=== PATIENT | female | born 1960 | race African-American/Black ===

== ENCOUNTER → 2017-03-15 | Outpatient (CLI) | payer OTHER ==
[2017-03-15 19:06] LABS: ALBUMIN 3.4 g/dL (3.4-5.0); ALBUMIN/GLOBULIN RATIO 0.8 (1.0-1.7); CALCIUM 9.1 mg/dL (8.5-10.1); CREATININE 0.9 mg/dL (0.6-1.0); GFR 64.5; POTASSIUM 4.5 mmol/L (3.5-5.1); TOTAL BILIRUBIN 0.3 mg/dL (0.2-1.0); TOTAL PROTEIN 7.5 g/dL (6.4-8.2)
[2017-03-15 20:21] LABS: BASO # 0.1 x10^3/uL (0.0-0.2); BASO % 1 % (0-3); EOS # 0.1 x10^3/uL (0.0-0.7); EOS % 1 % (0-3); HEMATOCRIT 43.5 % (36.0-47.0); HEMOGLOBIN 14.5 g/dL (12.0-15.5); LYMPH # 2.8 x10^3/uL (1.0-4.8); LYMPH % 37 % (24-48); MEAN CORPUSCULAR HEMOGLOBIN 29 pg (25-35); MEAN CORPUSCULAR HGB CONC 33 g/dL (31-37); MEAN CORPUSCULAR VOLUME 88 fL (79-100); MONO # 0.8 x10^3/uL (0.0-1.1); MONO % 11 % (0-9); NEUT # 3.9 x10^3uL (1.8-7.7); NEUT % 51 % (31-73); PLATELET COUNT 306 x10^3/uL (140-400); RED BLOOD COUNT 4.95 x10^6/uL (3.50-5.40); WHITE BLOOD COUNT 7.6 x10^3/uL (4.0-11.0)
[2017-03-15 22:59] LABS: % BANDS 1 % (0-9); % EOS 1 % (0-5); % LYMPHS 32 % (24-48); % MONOS 11 % (0-10); % SEGS 52 % (35-66)
[2017-03-15 23:00] LABS: PLT ESTIMATE ADEQUATE (ADEQUATE)
[2017-03-16 10:41] LABS: THYROID STIM HORMONE (TSH) 0.674 uIU/mL (0.358-3.740)
[2017-03-16 14:09] LABS: HEMOGLOBIN A1C 6.4 % (4.8-5.6)
== END | disposition home or self-care (01) ==
LOC: SPEC 18:25
PROVIDERS: ATTEND Nurse Practitioner
DX: E11.9 Type 2 diabetes mellitus without complications (principal); I10 Essential (primary) hypertension
CPT/HCPCS: 80053; 80061; 83036; 84443; 85007; 85025

== ENCOUNTER 2017-05-18 14:19 | Emergency (ER) | payer OTHER ==
[~2017-05-18] VITALS: Ht 157.5 cm; Wt 117.5 kg
[2017-05-18] MEDS ORDERED: AMLO5TAB4 PO (15:53)
--- NOTE | 2017-05-18 15:55 | PHYS DOC ---
Past History Past Medical History: Diabetes, Hypertension Past Surgical History: Hysterectomy Alcohol Use: None Drug Use: None Adult General Chief Complaint Chief Complaint: HYPERTENSION HPI HPI Patient is a 56-year-old female who presents here today secondary to elevated blood pressure. Patient reports that she is on lisinopril 20 mg twice a day. Patient reports that she has an appointment with her primary care physician 1 month. Patient reports yesterday while she was at work one of her students actually poked her in her right eye and she's been having pain and discomfort in her right eye since with associated headaches. Patient has been seen by [employer]. this. Patient noticed throughout the night last night that her blood pressure was elevated and she is concerned secondary to the elevation. Patient has no complaints of chest pain shortness of breath nausea vomiting diarrhea double vision blurred vision weakness to her upper or lower extremities. Patient reports she has been compliant with her medications. Patient has any change in her urinary output. Review of Systems Review of Systems Review of systems: Constitutional: Denies fever or chills Eyes: Denies change in visual acuity, redness, or eye pain HENT: Denies nasal congestion or sore throat Respiratory: Denies cough or shortness of breath All other systems were reviewed and found to be within normal limits, except as documented in this note. Physical exam: Constitutional: Well developed, well nourished, no acute distress, non-toxic appearance. HENT: Normocephalic, atraumatic, bilateral external ears normal, nose normal. Eyes: PERRLA, EOMI, conjunctiva normal, no discharge. Neck: Normal range of motion, no tenderness, supple, no stridor. Cardiovascular: Heart rate regular rhythm, Lungs & Thorax: Bilateral breath sounds clear to auscultation Abdomen: No abdominal distention. Skin: Warm, dry, no erythema, no rash. Back: Normal spinal curvature Extremities: No tenderness, no cyanosis, no clubbing, ROM intact, no edema. Neurologic: Alert and oriented X 3, normal motor function, normal sensory function, no focal deficits noted. Psychologic: Affect normal, judgement normal, mood normal. Patient's ER physical exam was most remarkable: Normal funduscopic exam. Mild right conjunctival injection. Assessment and plan: 1. Elevated blood pressure: Patient with history of hypertension currently on lisinopril 20 mg twice a day. Patient reports she will be unable see her primary care physician for at least 2 weeks. Patient be started on Norvasc 5 mg daily he'll be given a two-week course was able see her primary care physician. Patient is not exhibiting any signs or symptoms O be consistent with an acute hypertension. Allergies Allergies Allergies Coded Allergies Type Severity Reaction Last Updated Verified Penicillins Allergy Intermediate 05/18/17 Yes Current Patient Data Vital Signs Vital Signs Date Time Temp Pulse Resp B/P (MAP) Pulse Ox O2 Delivery O2 Flow Rate FiO2 05/18/17 14:30 98.5 86 22 97 Room Air EKG EKG [] Radiology/Procedures Radiology/Procedures [] Course & Med Decision Making Course & Med Decision Making Pertinent Labs and Imaging studies reviewed. (See chart for details) [] Dragon Disclaimer Dragon Disclaimer This electronic medical record was generated, in whole or in part, using a voice recognition dictation system. Departure Departure: Impression: Primary Impression: Hypertension Additional Impression: Headache Disposition: 01 HOME, SELF-CARE Condition: IMPROVED Referrals: KADEEM HALL APRN (PCP) Patient Instructions: General Headache Without Cause, Hypertension Additional Instructions: Please make an appointment to see her family doctor within one to 2 weeks for reevaluation of hypertension. Scripts Amlodipine Besylate (NORVASC) 5 Mg Tablet 1 TAB PO DAILY, #20 TAB 5 Refills Prov: PATEL CARROLL MD 05/18/17 Problem Qualifiers PATEL CARROLL MD May 18, 2017 15:55
[2017-05-18] MEDS: amLODIPine BESYLATE 5 MG TABLET PO ONE (15:56)
[2017-05-18 16:01] VITALS: BP 191/101
== END 2017-05-18 16:00 | disposition home or self-care (01) ==
LOC: ER 14:19
DX: I10 Essential (primary) hypertension (principal); R51 Headache; H57.11 Ocular pain, right eye; E11.9 Type 2 diabetes mellitus without complications; Z88.0 Allergy status to penicillin
CPT/HCPCS: 99283

== ENCOUNTER → 2018-11-02 | Outpatient (CLI) | payer OTHER ==
[~2018-11-02] MED LIST: AMLO5TAB4 PO
--- NOTE | 2018-11-02 14:33 | RAD ---
Low-dose CT chest lung screening HISTORY: 40 year smoking history. Lung cancer screening. TECHNIQUE: Low-dose technique utilized. FINDINGS: Round nodule identified in the right lower lobe, abutting the major fissure, measures 7 mm without calcification. Series 2, image 124. Small flat nodule in the right lower lobe measures 4 mm long axis, series 2, image 137. Flat nodule identified in the right upper lobe measuring 6 x 3 x 2 mm, series 2, image 107. There is no evidence of lung consolidation. Trachea and mainstem bronchi are patent. No evidence of pleural effusion or pericardial effusion. Aorta is calcified without evidence of aneurysm. Partially visualized thyroid is unremarkable. No significant lymph node enlargement. Scans to the upper abdomen are limited by technique but no obvious acute abnormality. Degenerative spondylosis. IMPRESSION: Right pulmonary nodules, largest measuring 7 mm in the right lower lobe. Findings compatible with lung RADS category 3. Recommend six-month follow-up with low dose CT. Electronically signed by: Brenton Rodriguez MD (11/02/2018 2:31 PM) [id number]
== END | disposition home or self-care (01) ==
LOC: CT 07:52
PROVIDERS: ATTEND Nurse Practitioner Family
DX: Z12.2 Encounter for screening for malignant neoplasm of respiratory organs (principal); R91.8 Other nonspecific abnormal finding of lung field; I70.0 Atherosclerosis of aorta; M47.819 Spondylosis without myelopathy or radiculopathy, site unspecified; Z87.891 Personal history of nicotine dependence
CPT/HCPCS: G0297

== ENCOUNTER → 2019-02-18 | Outpatient (CLI) | payer OTHER ==
--- NOTE | 2019-02-19 09:30 | RAD ---
DATE: 02/18/2019 8:30 AM EXAM: DIGITAL SCREEN BILAT W/CAD HISTORY: Baseline screening mammogram. COMPARISON: None. Bilateral CC and MLO views of the breasts were performed. This study was interpreted with the benefit of Computerized Aided Detection (CAD). FINDINGS: Breast Density: SCATTERED The breast parenchyma shows scattered fibroglandular densities. Breast parenchyma level B Cluster of amorphous microcalcifications within the left breast posterior depth 3:00 position approximately 12.2 cm from the nipple. Well-circumscribed mass left breast posterior depth 2:00 position measures 7.6 cm. No suspicious microcalcification, mass or architectural distortion within the right breast. Bilateral axillary lymph nodes. IMPRESSION: Cluster of amorphous calcifications within the left breast posterior depth 3:00 position. Well-circumscribed mass within the left breast posterior depth 2:00 position, may represent intramammary lymph node. BI-RADS CATEGORY: 0 INCOMPLETE: NEEDS ADDITIONAL IMAGING EVALUATION AND/OR PRIOR MAMMOGRAMS FOR COMPARISON. RECOMMENDED FOLLOW-UP: ADD ADDITIONAL IMAGING left breast CC and MLO spot compression views with ML view. Also left breast targeted ultrasound to evaluate the well-circumscribed mass. PQRS compliance statement: Patient information was entered into a reminder system. Mammography is a sensitive method for finding small breast cancers, but it does not detect them all and is not a substitute for careful clinical examination. A negative mammogram does not negate a clinically suspicious finding and should not result in delay in biopsying a clinically suspicious abnormality. "Our facility is accredited by the [employer] Mammography Program."
== END | disposition home or self-care (01) ==
LOC: MAMMO 08:20
PROVIDERS: ATTEND Nurse Practitioner Family
DX: Z12.31 Encounter for screening mammogram for malignant neoplasm of breast (principal); N63.21 Unspecified lump in the left breast, upper outer quadrant; N64.89 Other specified disorders of breast
CPT/HCPCS: 77067

== ENCOUNTER → 2020-01-03 | Outpatient (CLI) | payer OTHER ==
--- NOTE | 2020-01-03 10:26 | RAD ---
INDICATION: Reason: SHOULDER PAIN / Spl. Instructions: / History: COMPARISON: None. IMPRESSION: Left shoulder: 3 views obtained. There is some degenerative changes of the glenohumeral as well as the acromioclavicular joint with osteophyte formation. No evidence of acute fracture or dislocation. Electronically signed by: Josiah Lowe MD (01/03/2020 10:23 AM) [id number]
== END | disposition home or self-care (01) ==
LOC: DXRAD 09:43
PROVIDERS: ATTEND Nurse Practitioner Family
DX: M19.012 Primary osteoarthritis, left shoulder (principal); M25.712 Osteophyte, left shoulder
CPT/HCPCS: 73030

== ENCOUNTER 2020-06-28 07:26 | Emergency (ER) | payer SELFPAY ==
[~2020-06-28] VITALS: Ht 157.5 cm; Wt 115.0 kg
--- NOTE | 2020-06-28 07:52 | PHYS DOC ---
Past History Past Medical History: Diabetes, High Cholesterol, Hypertension Past Surgical History: Hysterectomy Additional Smoking Information: 2PPD Alcohol Use: Rarely Drug Use: None General Adult EDM: Chief Complaint: ABDOMINAL PAIN HPI: HPI: 59-year-old AA female past medical history significant for diabetes, obesity, hypertension and hyperlipidemia, presents to the ED brought in by EMS with complaints of right lower abdominal pain, worsened with urinating, x2 days, associated nausea with food, "I can only eat fruit." Pt points to both left/right inguinal regions and states "I just know something is wrong." Reports no BM for the past 2 days and has passed "rabbit pebbel," stools. Does not take opiods daily - has taken a few leftover tablets of tramadol for this pain. No h/o UTI. H/o partial hysterectomy secondary to uterine fibroids. Is concerned about her appendix. Reports dysuria and no relief of pain after voiding. Denies any associated, flank pain, fever or chills, body aches or flulike symptoms, vaginal bleeding or abnormal vaginal discharge itching or odor, hematuria, melena, hematochezia, back pain or neuro deficits. Review of Systems: Review of Systems: Constitutional: Denies fever or chills Eyes: Denies change in visual acuity HENT: Denies nasal congestion or sore throat Respiratory: Denies cough or shortness of breath Cardiovascular: Denies chest pain or edema GI: Denies bloody stools or diarrhea : Denies hematuria or vaginal bleeding Musculoskeletal: Denies back pain/CVA tenderness or joint pain Integument: Denies rash diaphoresis Neurologic: Denies headache, focal weakness or sensory changes Endocrine: Denies polyuria or polydipsia Lymphatic: Denies swollen glands Psychiatric: Denies depression or anxiety Allergies: Allergies: Allergies Coded Allergies Type Severity Reaction Last Updated Verified Penicillins Allergy Intermediate 06/28/20 Yes Physical Exam: PE: Constitutional: Well developed, well nourished, no acute distress-high pain tolerance?, non-toxic appearance. HENT: Normocephalic, atraumatic, Eyes: EOMI, conjunctiva normal, no discharge. Neck: Normal range of motion, supple, Cardiovascular: S1/2 present, regular rhythm Lungs & Thorax: Speaking in full sentences, bilateral equal chest rise, no tachypnea or increased work of breathing Abdomen: soft, no Sharma sign, no pain at McBurney's point, no Rovsing sign, no peritonitis/rigidity/guarding, cannot reproduce pain-is located over left and right inguinal region-skin exam normal Skin: Warm, dry, no erythema, no rash. [] Back: No midline tenderness, no CVA tenderness. [] Extremities: No tenderness, no cyanosis, Neurologic: Alert and oriented X 3, normal motor function, normal sensory function, no focal deficits noted. [] Psychologic: Affect normal, judgement normal, mood normal. [] Current Patient Data: Vital Signs: Vital Signs Date Time Temp Pulse Resp B/P (MAP) Pulse Ox O2 Delivery O2 Flow Rate FiO2 06/28/20 07:27 99.4 88 22 135/62 (86) 97 EKG: EKG: [] Radiology/Procedures: Radiology/Procedures: IMAGING REPORT Signed PATIENT: WINNIE FOY MACCOUNT: [id number] : 1960 LOCATION: ER AGE: 59 SEX: F EXAM STATUS: REG ER ORD. PHYSICIAN: HAFSA CASSIDY DO REASON: rlq pain Omni 300 60cc PROCEDURE: CT ABD PELV W/ IV CONTRST ONLY PQRS Compliance Statement: One or more of the following individualized dose reduction techniques were utilized for this examination: 1. Automated exposure control 2. Adjustment of the mA and/or kV according to patient size 3. Use of iterative reconstruction technique CT abdomen/pelvis with contrast 06/28/2020 8:15 AM INDICATION: Right lower quadrant pain. COMPARISON: None available TECHNIQUE: Multiple axial CT images of the abdomen and pelvis were obtained after the intravenous administration of nonionic contrast. Coronal and sagittal reformats are provided. FINDINGS: Lung bases are clear. Heart size is within normal limits. Liver, spleen, adrenal glands, pancreas and gallbladder are normal in appearance. Abdominal aorta is normal in course and caliber. There are no pathologically enlarged lymph nodes in abdomen and pelvis. The kidneys enhance symmetrically. There is no suspicious renal mass. There is no hydronephrosis. There are no suspected calculi within the kidneys, ureters or urinary bladder. There is circumferential wall thickening involving the mid to distal sigmoid colon with an adjacent pericolonic abscess measuring 6.7 x 5.3 x 3.6 cm (series 3, image 61). This is identified along the superior margin of the sigmoid colon. Along the inferior margin of sigmoid colon insinuating between the bladder and the cervix there is an additional suspected abscess measuring 4.7 x 5.5 x 2.8 cm (series 3, image 70). Findings may represent diverticulitis with microperforation or abscess formation. Underlying neoplastic causes remain a differential consideration. No suspicious osseous normality is identified. IMPRESSION: Extensive inflammation involving the mid to distal sigmoid colon may reflect diverticulitis or colitis with at least 2 pericolonic abscesses measuring 6.7 x 5.3 x 3.6 cm above the sigmoid colon and 4.7 x 5.5 x 2.8 cm along the vesicouterine pouch. No definite free intraperitoneal air remote from the area of inflammation. FOR INTERNAL CODING PURPOSES Critical result: Findings discussed with Dr. Chiang at 06/28/2020 9:18 AM. RESULT CODE: (C) Electronically signed by: Aletha Levine MD (06/28/2020 9:20 AM) [id number] DICTATED AND SIGNED BY: ALETHA LEVINE MD DATE: 06/28/20911 CC: PCP,UNKNOWN; HAFSA CASSIDY DO ~MTH0 0 Heart Score: C/O Chest Pain: No Risk Factors: Risk Factors: DM, Current or recent (<one month) smoker, HTN, HLP, family history of CAD, obesity. Risk Scores: Score 0 - 3: 2.5% MACE over next 6 weeks - Discharge Home Score 4 - 6: 20.3% MACE over next 6 weeks - Admit for Clinical Observation Score 7 - 10: 72.7% MACE over next 6 weeks - Early Invasive Strategies Course & Med Decision Making: Course & Med Decision Making Pertinent Labs and Imaging studies reviewed. (See chart for details) Concern for sepsis secondary to colitis/complicated sigmoid diverticulitis with 2 large pericolonic abscess. Will transfer to [facility] for surgical consultation and higher level of care. D/w Dr. Villegas-will need IR for drain. IV antibiotics and fluids started. Accepted by Dr. Fernandez. Covid test pending (not a pui). Patient stable at time of transfer and agrees with this plan. I have spoken with the patient and/or caregivers. I have explained the patient's condition, diagnosis and treatment plan based on the information available to me at this time. I have answered the patient's and/or caregivers questions and answered any concerns. The patient and/or caregivers have as good an understanding of the patient's diagnosis, condition and treatment plan as can be expected at this point. The patient has been stabilized within the capability of the emergency department. The patient will be transported for further care and management or will be moved to an observation or inpatient se rvice. I have communicated with the staff or medical practitioner taking over this patient's care. Dragon Disclaimer: Draggino Disclaimer: This electronic medical record was generated, in whole or in part, using a voice recognition dictation system. Departure Departure: Impression: Primary Impression: Sepsis Additional Impressions: Diverticulitis of large intestine with complication Pericolonic abscess MARYBETH (acute kidney injury) Disposition: 05 DC/TRF OTHER TYPE INSTITUTI (to [facility] for surgery consultation/higher level of care, accepted by Dr. Fernandez) Condition: GUARDED Referrals: ROBEL LAUREN (PCP) HAFSA CASSIDY DO Jun 28, 2020 07:52
[2020-06-28] MEDS ORDERED: IOHEXOL 300 MG/ML 75 ML VIAL. IV ONE (08:00)
[2020-06-28] MEDS ORDERED: IV NORMAL SALINE 1,000ML 1,000 ML IV ONE ×3 (08:00→09:30)
[2020-06-28 08:02] LABS: BASO # 0.2 x10^3/uL (0.0-0.2); BASO % 1 % (0-3); EOS % 0 % (0-3); HEMATOCRIT 41.1 % (36.0-47.0); HEMOGLOBIN 13.4 g/dL (12.0-15.5); LYMPH % 11 % (24-48); MEAN CORPUSCULAR HEMOGLOBIN 29 pg (25-35); MEAN CORPUSCULAR HGB CONC 33 g/dL (31-37); MEAN CORPUSCULAR VOLUME 89 fL (79-100); MONO # 2.3 x10^3/uL (0.0-1.1); MONO % 13 % (0-9); NEUT % 75 % (31-73); PLATELET COUNT 401 x10^3/uL (140-400); RED BLOOD COUNT 4.61 x10^6/uL (3.50-5.40); RED CELL DISTRIBUTION WIDTH 13.5 % (11.5-14.5); WHITE BLOOD COUNT 18.5 x10^3/uL (4.0-11.0)
[2020-06-28] MEDS ORDERED: HYDROmorphone PF 1 MG/ML DISP.SYRIN IVP ONE (08:15)
[2020-06-28] MEDS ORDERED: ONDANSETRON PF 4 MG/2 ML VIAL. IVP ONE (08:15)
[2020-06-28 08:16] LABS: CALCIUM 9.2 mg/dL (8.5-10.1); CREATININE 1.3 mg/dL (0.6-1.0); GFR 50.6; POTASSIUM 4.5 mmol/L (3.5-5.1)
[2020-06-28 08:19] LABS: ALBUMIN 2.6 g/dL (3.4-5.0); DIRECT BILIRUBIN 0.2 mg/dL (0.0-0.2); TOTAL BILIRUBIN 0.6 mg/dL (0.2-1.0); TOTAL PROTEIN 7.6 g/dL (6.4-8.2)
[2020-06-28 08:39] LABS: BACTERIA,URINE FEW /HPF (0-FEW); CLARITY,URINE CLEAR; COLOR,URINE YELLOW; GLUCOSE,URINE 500 mg/dL (NEG); HYALINE CASTS, URINE FEW /HPF; NITRITE,URINE NEG (NEG); SQUAMOUS EPITHELIAL CELL,UR FEW /LPF
[2020-06-28 08:41] LABS: BILIRUBIN,URINE SMALL (NEG)
--- NOTE | 2020-06-28 09:23 | RAD ---
PQRS Compliance Statement: One or more of the following individualized dose reduction techniques were utilized for this examinat ion: 1. Automated exposure control 2. Adjustment of the mA and/or kV according to patient size 3. Use of iterative reconstruction technique CT abdomen/pelvis with contrast 06/28/2020 8:15 AM INDICATION: Right lower quadrant pain. COMPARISON: None available TECHNIQUE: Multiple axial CT images of the abdomen and pelvis were obtained after the intravenous adm inistration of nonionic contrast. Coronal and sagittal reformats are provided. FINDINGS: Lung bases are clear. Heart size is within normal limits. Liver, spleen, adrenal glands, pancreas and gallbladder are normal in appearance. Abdominal aorta is normal in course and caliber. There are no pathologically enlarged lymph nodes in abdomen and pelvis. The kidneys enhance symmetrically. There i s no suspicious renal mass. There is no hydronephrosis. There are no suspected calculi within the kid neys, ureters or urinary bladder. There is circumferential wall thickening involving the mid to distal sigmoid colon with an adjacent p ericolonic abscess measuring 6.7 x 5.3 x 3.6 cm (series 3, image 61). This is identified along the bateman perior margin of the sigmoid colon. Along the inferior margin of sigmoid colon insinuating between th e bladder and the cervix there is an additional suspected abscess measuring 4.7 x 5.5 x 2.8 cm (serie s 3, image 70). Findings may represent diverticulitis with microperforation or abscess formation. Und erlying neoplastic causes remain a differential consideration. No suspicious osseous normality is jung ntified. IMPRESSION: Extensive inflammation involving the mid to distal sigmoid colon may reflect diverticulitis or coliti s with at least 2 pericolonic abscesses measuring 6.7 x 5.3 x 3.6 cm above the sigmoid colon and 4.7 x 5.5 x 2.8 cm along the vesicouterine pouch. No definite free intraperitoneal air remote from the ar ea of inflammation. FOR INTERNAL CODING PURPOSES Critical result: Findings discussed with Dr. Chiang at 06/28/2020 9:18 AM. RESULT CODE: (C) Electronically signed by: Dianna Peres MD (06/28/2020 9:20 AM) [id number]
[2020-06-28] MEDS ORDERED: CIPROFLOXACIN 400MG PREMIX 200 ML IV ONE (09:30)
[2020-06-28 12:30] VITALS: BP 119/69
[2020-06-28 14:22] LABS: % ATYL 1 % (0-0); % BANDS 5 % (0-9); % LYMPHS 14 % (24-48); % MONOS 14 % (0-10); % SEGS 66 % (35-66)
[2020-06-28 14:27] LABS: PLT ESTIMATE ADEQUATE (ADEQUATE)
[2020-06-28 14:29] LABS: POLYCHROMASIA PRESENT; TARGET CELLS OCC
== END 2020-06-28 12:43 | disposition short-term general hospital (02) ==
LOC: ER 07:26
DX: A41.9 Sepsis, unspecified organism (principal); K57.20 Diverticulitis of large intestine with perforation and abscess without bleeding; N17.9 Acute kidney failure, unspecified; E11.9 Type 2 diabetes mellitus without complications; E78.00 Pure hypercholesterolemia, unspecified; I10 Essential (primary) hypertension; F17.210 Nicotine dependence, cigarettes, uncomplicated; Z20.822 Contact with and (suspected) exposure to COVID-19; Z88.0 Allergy status to penicillin
CPT/HCPCS: 36415; 74177; 80048; 80076; 81001; 82550; 83605; 83690; 85007; 85025; 87040; 87426; 96361; 96365; 96366; 96367; 96375; 99285; C9803; J0744; J1170; J2405; J3490; J7030; Q9967; U0003

== ENCOUNTER → 2020-07-29 | Outpatient (CLI) | payer OTHER ==
--- NOTE | 2020-07-29 13:32 | RAD ---
DATE: 07/29/2020 EXAM: DIGITAL DIAGNOSTIC BILATERAL HISTORY: Baseline screening mammogram of January 2019 recommended additional mammogram views. Patient returns today. COMPARISON: Bilateral mammogram 02/18/2019. CAD was utilized. FINDINGS: The breast parenchyma shows scattered fibroglandular densities. There are no dominant masses, suspicious microcalcifications or evidence of architectural distortion. There are a few new benign microcalcifications of the posterior inner right breast. Microcalcifications of the central posterior left breast are stable. There are faint arterial calcifications. There are several benign-appearing bilateral axillary lymph nodes. Left breast ultrasound is not necessary. IMPRESSION: No mammographic evidence of malignancy. Recommend routine screening. BI-RADS CATEGORY: 2 BENIGN FINDING RECOMMENDED FOLLOW-UP: 12M 12 MONTH FOLLOW-UP PQRS compliance statement: Patient information was entered into a reminder system with a target due date for the next mammogram. Mammography is a sensitive method for finding small breast cancers, but it does not detect them all and is not a substitute for careful clinical examination. A negative mammogram does not negate a clinically suspicious finding and should not result in delay in biopsying a clinically suspicious abnormality. "Our facility is accredited by the [employer] Mammography Program."
== END ==
LOC: MAMMO 12:09
PROVIDERS: ATTEND Nurse Practitioner Family
DX: R92.8 Other abnormal and inconclusive findings on diagnostic imaging of breast (principal); N63.20 Unspecified lump in the left breast, unspecified quadrant
CPT/HCPCS: 77066

== ENCOUNTER 2021-05-23 04:12 | Emergency (ER) | payer SELFPAY ==
[~2021-05-23] VITALS: Ht 157.5 cm; Wt 115.0 kg
--- NOTE | 2021-05-23 04:15 | PHYS DOC ---
Past History Past Medical History: Diabetes, High Cholesterol, Hypertension Past Surgical History: Hysterectomy Alcohol Use: Rarely Drug Use: None General Adult HPI: HPI: " .. I think I caught a cold the other day in my neck.. usually a wear a scarf...I would like to get a xray.. .. I could not sleep tonight because of the pain in my Lt side of my neck.. I can't turn my head to the Left.. I drove here by only Rt. hand turns... because I did not want to turn my head to the Lt...." Patient is a 60 year old female who presents with above hx and complaints of neck pain. Pt. follows with Dr. Blanc and [facility]. , No hx of fever or chills. No hx of IV drug use. No hx immuno- suppression. No specific hx of trauma. Pt. report pain so severe unable to turn neck to Lt. Pt. does have hx arthritis, DM, elevate cholesterol. and HTN. Pt. has not gotten Flu or COVID vaccinations. Not gotten pneumovax or zoster vaccination. 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 Review of Systems: Review of Systems: Constitutional: Denies fever or chills Eyes: Denies change in visual acuity HENT: Denies nasal congestion or sore throat Respiratory: Denies cough or shortness of breath Cardiovascular: Denies chest pain or edema GI: Denies abdominal pain, nausea, vomiting, bloody stools or diarrhea : Denies dysuria Musculoskeletal: Denies back pain or joint pain Integument: Denies rash Neurologic: Denies headache, focal weakness or sensory changes Endocrine: Denies polyuria or polydipsia Lymphatic: Denies swollen glands Psychiatric: Denies depression or anxiety Family History: Family History: Brother has hx CVA Current Medications: Current Meds: See Nursing for home meds Allergies: Allergies: Allergies Coded Allergies Type Severity Reaction Last Updated Verified Penicillins Allergy Intermediate 06/28/20 Yes Physical Exam: PE: Constitutional: moderate acute distress, non-toxic appearance. [] HENT: Normocephalic, atraumatic, bilateral external ears normal, oropharynx moist, no oral exudates, nose normal. [] Eyes: PERRLA, EOMI, conjunctiva normal, no discharge. [] Neck: decrease range of motion, Lt trapezius tenderness, supple, no stridor. [] Cardiovascular:Heart rate regular rhythm, no murmur , PMI to Lt. Lungs & Thorax: Bilateral breath sounds equal at apex and basilar crackles on auscultation [] Abdomen: Bowel sounds normal, soft, no tenderness, no masses, no pulsatile masses. Obese. Skin: Warm, dry, no erythema, no rash. [] Back: No tenderness, no CVA tenderness. [] Extremities: No tenderness, no cyanosis, no clubbing, ROM intact, ankle edema. []No cording Neurologic: Alert and oriented X 3,moves ext. on request, has distal sensory, no focal deficits noted. [] Psychologic: Affect anxios, judgement normal, mood normal. [] EKG: EKG: [] Radiology/Procedures: Radiology/Procedures: [][address] [address] IMAGING REPORT Signed PATIENT: WINNIE FOY MACCOUNT: [id number] : 1960 LOCATION: ER AGE: 60 SEX: F EXAM STATUS: REG ER ORD. PHYSICIAN: SHAMEKA ANDERSON MD REASON: Severe torticollis and [id number] neck PROCEDURE: CT CERVICAL SPINE WO CONTRAST EXAM: CT CERVICAL SPINE WITHOUT CONTRAST. HISTORY: Torticollis, left neck pain. TECHNIQUE: Computed tomography of the cervical spine was performed without intravenous contrast. One or more of the following individualized dose reduction techniques were utilized for this examination: 1. Automated exposure control. 2. Adjustment of the mA and/or kV according to patient size. 3. Use of iterative reconstruction technique. COMPARISON: None. FINDINGS: Alignment is maintained. There is mild osteoarthritis at C1/2. No fractures are identified. Intervertebral disc heights are maintained. There is no prevertebral soft tissue swelling. There is a small amount of fluid in the mastoid air cells. At C2-3, there is moderate severe erosive arthritis along the left facet joint. There is no clear central canal stenosis or neural foraminal stenosis throughout. Bridging bulky osteophytes along the anterolateral right aspect of C3-C7 are consistent with diffuse idiopathic skeletal hyperostosis. IMPRESSION: 1. No fracture or acute malalignment. Degenerative changes as above. Electronically signed by: Sami Farris MD (05/23/2021 6:28 AM) [id number] DICTATED AND SIGNED BY: BRYAN FARRIS MD DATE: 05/23/21623 CC: SHAMEKA ANDERSON MD; SIM BLANC APRN ~MTH0 0 Heart Score: C/O Chest Pain: N/A Risk Factors: Risk Factors: DM, Current or recent (<one month) smoker, HTN, HLP, family history of CAD, obesity. Risk Scores: Score 0 - 3: 2.5% MACE over next 6 weeks - Discharge Home Score 4 - 6: 20.3% MACE over next 6 weeks - Admit for Clinical Observation Score 7 - 10: 72.7% MACE over next 6 weeks - Early Invasive Strategies Course & Med Decision Making: Course & Med Decision Making Pertinent Labs and Imaging studies reviewed. (See chart for details) Take tylenol and ibuprofen for discomfort. Follow up with primary. Take flexeril 10 mg up three times a day for muscle spasm.s. Pt. consider eval. by neurosurgery. Impression: 1. Torticollis 2. Cervical degenerative arthritis [] Dragon Disclaimer: Dragon Disclaimer: This electronic medical record was generated, in whole or in part, using a voice recognition dictation system. Departure Departure: Referrals: SIM BLANC APRN (PCP) Scripts Cyclobenzaprine Hcl (CYCLOBENZAPRINE HCL) 10 Mg Tablet 10 MG PO TID PRN PRN for spasms, #30 TAB Prov: SHAMEKA ANDERSON MD 05/23/21 Dragon Disclaimer This chart was dictated in whole or in part using Voice Recognition software in a busy, high-work load, and often noisy Emergency Department environment. It may contain unintended and wholly unrecognized errors or omissions. SHAMEKA ANDERSON MD May 23, 2021 04:15
[2021-05-23 04:20] VITALS: BP 119/69
[2021-05-23] MEDS ORDERED: KETOROLAC 60 MG/2 ML VIAL. IM ONE (05:00)
[2021-05-23] MEDS ORDERED: methylPREDNISolone ACETATE 40 MG/ML VIAL. IM ONE (05:00)
[2021-05-23] MEDS ORDERED: CYCL10TA19 PO (06:30)
--- NOTE | 2021-05-23 06:30 | RAD ---
EXAM: CT CERVICAL SPINE WITHOUT CONTRAST. HISTORY: Torticollis, left neck pain. TECHNIQUE: Computed tomography of the cervical spine was performed without intravenous contrast. One or more of the following individualized dose reduction techniques were utilized for this examination: 1. Automated exposure control. 2. Adjustment of the mA and/or kV according to patient size. 3. Use of iterative reconstruction technique. COMPARISON: None. FINDINGS: Alignment is maintained. There is mild osteoarthritis at C1/2. No fractures are identified. Intervertebral disc heights are maintained. There is no prevertebral soft tissue swelling. There is a small amount of fluid in the mastoid air cells. At C2-3, there is moderate severe erosive arthritis along the left facet joint. There is no clear manny tral canal stenosis or neural foraminal stenosis throughout. Bridging bulky osteophytes along the anterolateral right aspect of C3-C7 are consistent with diffuse idiopathic skeletal hyperostosis. IMPRESSION: 1. No fracture or acute malalignment. Degenerative changes as above. Electronically signed by: Sami Farris MD (05/23/2021 6:28 AM) YEE
== END 2021-05-23 06:55 | disposition home or self-care (01) ==
LOC: ER 04:12
DX: M43.6 Torticollis (principal); M47.812 Spondylosis without myelopathy or radiculopathy, cervical region; E11.9 Type 2 diabetes mellitus without complications; E78.00 Pure hypercholesterolemia, unspecified; I10 Essential (primary) hypertension; Z88.0 Allergy status to penicillin
CPT/HCPCS: 72125; 96372; 99284; J1030; J1885